=== PATIENT | male | born 1940 ===

== ENCOUNTER 2019-09-29 06:00 | Outpatient (RCR) | payer MEDICARE, SELFPAY | END 2019-10-29 23:59 | disposition home or self-care (01) | LOC: GPT 06:00 | PROVIDERS: Family Provider Family Medicine; PCP Family Medicine; Visit Provider Family Medicine | DX: Z47.1 Aftercare following joint replacement surgery (principal); Z96.652 Presence of left artificial knee joint | CPT/HCPCS: 97032; 97110; 97112; 97116; 97140; 97530; G0283 ==

== ENCOUNTER 2019-10-30 06:00 | Outpatient (RCR) | payer MEDICARE, SELFPAY | END 2019-11-27 23:59 | disposition home or self-care (01) | LOC: GPT 06:00 | PROVIDERS: Family Provider Family Medicine; PCP Family Medicine; Visit Provider Family Medicine | DX: Z47.89 Encounter for other orthopedic aftercare (principal); Z96.651 Presence of right artificial knee joint | CPT/HCPCS: 97110; 97112; 97116; 97164; 97530; G0283 ==

== ENCOUNTER 2019-11-28 06:00 | Outpatient (RCR) | payer MEDICARE, OTHER, SELFPAY | END 2019-12-28 23:59 | disposition home or self-care (01) | LOC: GPT 06:00 | PROVIDERS: Family Provider Family Medicine; PCP Family Medicine; Visit Provider Family Medicine | DX: Z98.890 Other specified postprocedural states (principal); Z96.651 Presence of right artificial knee joint | CPT/HCPCS: 97110; 97112; 97116; 97164; 97530; G0283 ==

== ENCOUNTER 2019-12-29 06:00 | Outpatient (RCR) | payer MEDICARE, OTHER, SELFPAY | END 2020-01-27 23:59 | disposition home or self-care (01) | LOC: GPT 06:00 | PROVIDERS: Family Provider Family Medicine; PCP Family Medicine; Visit Provider Family Medicine | DX: Z96.651 Presence of right artificial knee joint (principal); Z47.89 Encounter for other orthopedic aftercare; Z98.890 Other specified postprocedural states | CPT/HCPCS: 97110; 97112; 97116; 97161; 97164; 97530 ==

== ENCOUNTER 2021-02-08 06:00 | Outpatient (RCR) | payer MEDICARE, OTHER, SELFPAY | END 2021-02-26 23:59 | disposition home or self-care (01) | LOC: GPT 06:00 | PROVIDERS: PCP Family Medicine; Referring Provider Orthopaedic Surgery; Visit Provider Orthopaedic Surgery | DX: Z47.89 Encounter for other orthopedic aftercare (principal) | CPT/HCPCS: 97032; 97110; 97112; 97140; 97161; 97530 ==

== ENCOUNTER 2021-02-27 06:00 | Outpatient (RCR) | payer MEDICARE, OTHER, SELFPAY | END 2021-03-28 23:59 | disposition home or self-care (01) | LOC: GPT 06:00 | PROVIDERS: PCP Family Medicine; Referring Provider Orthopaedic Surgery; Visit Provider Orthopaedic Surgery | DX: Z47.89 Encounter for other orthopedic aftercare (principal) | CPT/HCPCS: 97110; 97112; 97164; 97530 ==

== ENCOUNTER 2021-03-29 06:00 | Outpatient (RCR) | payer MEDICARE, OTHER, SELFPAY | END 2021-04-28 23:59 | disposition home or self-care (01) | LOC: GPT 06:00 | PROVIDERS: PCP Family Medicine; Referring Provider Orthopaedic Surgery; Visit Provider Orthopaedic Surgery | DX: Z47.89 Encounter for other orthopedic aftercare (principal) | CPT/HCPCS: 97110; 97112; 97116; 97161; 97164; 97530; 97760 ==

== ENCOUNTER 2021-04-29 06:00 | Outpatient (RCR) | payer MEDICARE, OTHER, SELFPAY | END 2021-05-29 23:59 | disposition home or self-care (01) | LOC: GPT 06:00 | PROVIDERS: PCP Family Medicine; Referring Provider Orthopaedic Surgery; Visit Provider Orthopaedic Surgery | DX: Z47.89 Encounter for other orthopedic aftercare (principal) | CPT/HCPCS: 97110; 97112; 97530 ==

== ENCOUNTER 2025-01-27 05:00 | Outpatient (RCR) | payer MEDICARE, SELFPAY | END 2025-02-26 23:59 | disposition home or self-care (01) | LOC: GPT 05:00 | PROVIDERS: Visit Provider Nurse Practitioner Family | DX: M47.896 Other spondylosis, lumbar region (principal); R26.2 Difficulty in walking, not elsewhere classified; M54.59 Other low back pain | CPT/HCPCS: 97161 ==

== ENCOUNTER 2025-02-27 05:00 | Outpatient (RCR) | payer MEDICARE, SELFPAY | END 2025-03-28 23:59 | disposition home or self-care (01) | LOC: GPT 05:00 | PROVIDERS: Visit Provider Nurse Practitioner Family | DX: M47.896 Other spondylosis, lumbar region (principal); M54.59 Other low back pain; R26.2 Difficulty in walking, not elsewhere classified | CPT/HCPCS: 97110; 97112 ==

== ENCOUNTER 2025-03-29 05:00 | Outpatient (RCR) | payer MEDICARE, SELFPAY | END 2025-04-28 23:59 | disposition home or self-care (01) | LOC: GPT 05:00 | PROVIDERS: Visit Provider Nurse Practitioner Family | DX: M47.896 Other spondylosis, lumbar region (principal); R26.2 Difficulty in walking, not elsewhere classified; M54.59 Other low back pain | CPT/HCPCS: 97110; 97112 ==

== ENCOUNTER 2025-04-29 05:00 | Outpatient (RCR) | payer MEDICARE, SELFPAY | END 2025-05-18 13:58 | disposition home or self-care (01) | LOC: GPT 05:00 | PROVIDERS: Visit Provider Nurse Practitioner Family | DX: M54.59 Other low back pain (principal); R26.2 Difficulty in walking, not elsewhere classified; M47.896 Other spondylosis, lumbar region | CPT/HCPCS: 97110; 97164 ==